=== PATIENT | female | born 1975 | race Caucasian/White ===

== ENCOUNTER → 2023-07-17 06:25 | Day surgery (SDC) | payer OTHER, SELFPAY | LOC: GI 06:25 | PROVIDERS: ATTENDING PHYSICIAN Internal Medicine Gastroenterology | DX: Z12.11 Encounter for screening for malignant neoplasm of colon (principal); K63.5 Polyp of colon; K57.30 Diverticulosis of large intestine without perforation or abscess without bleeding; D12.8 Benign neoplasm of rectum; K64.0 First degree hemorrhoids; Z86.010 Personal history of colon polyps; Z98.890 Other specified postprocedural states | CPT/HCPCS: 45380; 88305 ==

== ENCOUNTER → 2023-07-20 13:26 | Outpatient (REF) | payer OTHER, SELFPAY | LOC: HWWDC 13:26 | PROVIDERS: ATTENDING PHYSICIAN Nurse Practitioner Family | DX: Z12.31 Encounter for screening mammogram for malignant neoplasm of breast (principal) | CPT/HCPCS: 77063; 77067 ==

== ENCOUNTER → 2024-08-10 08:42 | Outpatient (REF) | payer OTHER, SELFPAY | LOC: HWWDC 08:42 | PROVIDERS: ATTENDING PHYSICIAN Nurse Practitioner Family | DX: Z12.31 Encounter for screening mammogram for malignant neoplasm of breast (principal) | CPT/HCPCS: 77063; 77067 ==

== ENCOUNTER → 2024-11-04 11:13 | Outpatient (REF) | payer OTHER, SELFPAY | LOC: HWRAD 11:13 | PROVIDERS: ATTENDING PHYSICIAN Nurse Practitioner Family | DX: M25.571 Pain in right ankle and joints of right foot (principal) | CPT/HCPCS: 73610 ==

== ENCOUNTER 2025-02-08 09:49 | Emergency (ER) | payer OTHER, SELFPAY ==
[2025-02-08 10:07] VITALS: BP 119/81
[2025-02-08 11:46] LABS: Hematocrit 41.8 % (37.0-47.0); Hemoglobin 14.0 g/dL (12.0-16.0); Mean Corp Hgb Conc. 33.5 g/dL (33.0-37.0); Mean Corpuscular Volume 88.7 fL (81.0-99.0); Nucleated Red Blood Cells % 0 %; Platelet Count 269 10^3/uL (130-400); Red Cell Dist. Width 13.6 % (11.5-14.5)
--- NOTE | 2025-02-08 11:50 | ED.GENMED ---
History of Present Illness
General
Chief Complaint: Abdominal Pain
Time Seen by Provider: 02/08/25 11:31
History of Present Illness
History of Present Illness:
49-year-old female presents for evaluation of crampy lower abdominal pain beginning overnight. She would have the urge to have a bowel movement and passed a small amount of mucousy stool then pain would improve. Pain is minimal at this time. No
fevers, chills, sweats, nausea, vomiting, or lower urinary tract voiding symptoms. Prior abdominal surgery includes hysterectomy and laparoscopic surgery for endometriosis. Has had prior colonoscopies that showed diverticulosis
Past History
Past History
ED Past Medical History: None; Negative Asthma, HTN, Hypercholesterolemia or NIDDM
ED Past Surgical History: None
Social History
Tobacco: Smoker
Alcohol: None
Personal:
Living: with family
Review of Systems
Review of Systems
Allergies reviewed?: Yes
All Other Systems: ROS reviewed and negative except as documented in HPI and ROS
Phy Exam
Physical Exam
Physical Exam:
GEN: Well appearing, NAD, WDWN
HEENT: Oral mucosa moist, no scleral icterus
Cardiac: Regular rate
Lung: No respiratory distress, no tachypnea
Abdomen: Soft, mildly tender in the suprapubic and left lower quadrant, no rigidity or peritoneal signs
MSK: No gross deformity or injuries
Skin: Good color, no pallor or jaundice, no rashes
Neuro: AO x3, moves all extremities freely
Psych: Calm, cooperative
Course
Orders/Labs/Results
Orders:
Orders
02/08/25 11:36
Complete Blood Count/With Diff Urgent
02/08/25 11:50
CT Abd/Pel (IV only)-DH only Urgent
Comment:
Reason For Exam: LLQ pain
02/08/25 12:02
Comprehensive Metabolic Panel Urgent
HCG, Serum Qualitative Screen Urgent
Comment: ADD ON
Lipase Urgent
Abnormal Lab Results
02/08/25
12:02
Glucose 102 H mg/dl
(70-99)
02/08/25 11:36
02/08/25 12:02
Vital Signs
Initial and Last Documented VS:
Initial Vital Signs
Temp Pulse Resp BP Pulse Ox
98.1 F 73 16 119/81 97
02/08/25 10:07 02/08/25 10:07 02/08/25 10:07 02/08/25 10:07 02/08/25 10:07
Last Documented Vital Signs
Temp Pulse Resp BP Pulse Ox
98.1 F 75 18 131/72 98
02/08/25 10:07 02/08/25 14:13 02/08/25 14:13 02/08/25 14:13 02/08/25 14:13
MDM/Problems Addressed
MDM/Problems Addressed:
Imaging is grossly unremarkable for acute pathology. May be self-limited viral syndrome. I have prescribed the patient dicyclomine for supportive relief and recommend outpatient primary care follow-up if symptoms persist
*Pulse Oximetry
SaO2: 97
Oxygen Mode of Delivery: Room air
Patient hypoxic: no
*Critical Care Note
Total Time (30-74mins, 75-104mins- exclusive of procedures): Not Applicable
ED Attending Note
-
Portions of this chart may have been created with voice recognition software.� Occasional wrong word or��sound alike� substitutions may have occurred due to the inherent limitations of voice recognition software.
Discharge Plan
Departure
Patient Disposition: Home (Routine Discharge)
Date of Disposition: 02/08/25
Time of Disposition: 14:53
Patient with high blood pressure during this ER visit?: No
Discharge Problem:
Abdominal pain
Instructions: Abdominal Pain
Prescriptions:
New
dicyclomine 20 mg tablet
20 mg PO TID PRN (Reason: abdominal pain) Qty: 20 0RF
No Action
levofloxacin 250 MG tablet
500 mg PO DAILY Qty: 5 0RF
Referrals:
Aba Quintero CRNP [Family Provider, Family Practice]
Interventions
Interventions:
*Risk Screen - Suicide Last Done: 02/08/25 10:07
*General Assessment Last Done: 02/08/25 10:07
*Nursing Disposition Last Done: 02/08/25 15:17
[facility] Assessment Last Done: 02/08/25 12:24
Discharge Date and Time
Discharge Date/Time: 02/08/25 15:17
Print Language: TAJIK
[2025-02-08 12:36] LABS: HCG, Serum Qualitative Screen Negative
[2025-02-08 12:42] LABS: ALT (SGPT) 17 U/L (0-35); AST (SGOT) 19 U/L (14-36); Albumin 4.3 g/dl (3.5-5.0); Alkaline Phosphatase 80 U/L (38-126); Blood Urea Nitrogen 17 mg/dl (7-17); Calcium 9.7 mg/dl (8.4-10.2); Carbon Dioxide 28 mmol/L (22-30); Chloride 106 mmol/L (98-107); Glucose 102 mg/dl (70-99); Lipase 47 U/L (23-300); Potassium 4.1 mmol/L (3.5-5.1); Sodium 138 mmol/L (135-145); Total Protein 7.3 g/dl (6.3-8.2); eGFR > 60.00
[2025-02-08 14:13] VITALS: BP 131/72
== END 2025-02-08 15:17 | disposition home or self-care (01) ==
LOC: EMR 09:49
PROVIDERS: Emergency Medicine; EMERGENCY PHYSICIAN Emergency Medicine; FAMILY PHYSICIAN Nurse Practitioner Family
DX: R10.30 Lower abdominal pain, unspecified (principal); F17.200 Nicotine dependence, unspecified, uncomplicated; Z90.710 Acquired absence of both cervix and uterus
CPT/HCPCS: 99284; 74177; 80053; 83690; 84703; 85025; Q9967

== ENCOUNTER 2025-05-11 18:43 | Emergency (ER) | payer OTHER, SELFPAY ==
[2025-05-11 18:46] VITALS: BP 147/78
[2025-05-11 19:14] LABS: Hematocrit 39.3 % (37.0-47.0); Hemoglobin 13.1 g/dL (12.0-16.0); Mean Corp Hgb Conc. 33.3 g/dL (33.0-37.0); Mean Corpuscular Volume 88.5 fL (81.0-99.0); Nucleated Red Blood Cells % 0 %; Platelet Count 254 10^3/uL (130-400); Red Cell Dist. Width 13.8 % (11.5-14.5)
[2025-05-11 19:19] VITALS: BP 124/67
[2025-05-11 19:35] LABS: ALT (SGPT) 23 U/L (0-35); AST (SGOT) 31 U/L (14-36); Albumin 4.2 g/dl (3.5-5.0); Alkaline Phosphatase 102 U/L (38-126); Blood Urea Nitrogen 18 mg/dl (7-17); Calcium 9.4 mg/dl (8.4-10.2); Carbon Dioxide 29 mmol/L (22-30); Chloride 105 mmol/L (98-107); Glucose 123 mg/dl (70-99); Lipase 72 U/L (23-300); Potassium 4.0 mmol/L (3.5-5.1); Sodium 139 mmol/L (135-145); Total Protein 7.2 g/dl (6.3-8.2); eGFR > 60.00
[2025-05-11 19:41] LABS: INR 0.96; PT 12.6 Sec (11.4-14.6)
[2025-05-11 19:47] LABS: Troponin I < 0.012 ng/ml
[2025-05-11 20:00] VITALS: BP 124/75
--- NOTE | 2025-05-11 20:14 | ED.GENMED ---
History of Present Illness
General
Chief Complaint: Chest Pain
Time Seen by Provider: 05/11/25 20:13
Nursing documentation reviewed up to this point in time: agreed with
History of Present Illness
History of Present Illness:
50-year-old female presents to the ER for evaluation of upper abdominal discomfort which started abruptly after eating. Patient was celebrating a holiday with her family and had steak for dinner followed by cheese cake for dessert. Patient
describes it as a sharp pain in her mid upper abdomen with feeling of radiation to her shoulder. She states it was very intense making her feel nauseated and diaphoretic. No prior history of similar discomforts. No prior history of abdominal
surgery. Patient tried taking Tums without any improvement. She also has no prior personal history of ACS. Patient states that the pain has improved significantly while awaiting test results. She denies vomiting or change in bowel habits. She
has no significant prior medical history
Past History
Past History
ED Past Medical History: None; Negative Asthma, HTN, Hypercholesterolemia or NIDDM
ED Past Surgical History: None
Social History
Tobacco: Smoker
Alcohol: None
Personal:
Living: with family
Review of Systems
Review of Systems
Allergies reviewed?: Yes
Phy Exam
Physical Exam
Physical Exam:
Patient is awake, alert, appears in no acute distress, overweight, head is NCAT, PERRL, EOMI mucous membranes moist, conjunctiva pink, sclera anicteric, heart regular rate and rhythm without murmurs or ectopy, lungs are clear to auscultation without
wheezes rales or rhonchi, no JVD, abdomen is soft, obese, mild pain on palpation in epigastrium, negative Nieto's, extremities without edema, GCS is 15
Scores
Heart Score for Chest Pain Patients
STEMI patient?: Not applicable
History: Slightly or Non-Suspicious
ECG: Normal
Age: >45 - <65 years
Risk Factors: No Risk Factors
Troponin: </= Normal Limit
Heart Score for Chest Pain Patients: 1
Heart Score Risk: 2.5% MACE over next 6 weeks
Course
Orders/Labs/Results
Orders:
Orders
05/11/25 18:44
Electrocardiogram (*1) Urgent
Reason for Study: Chest Pain
EKG- Treatment ONCE
05/11/25 19:03
Complete Blood Count/With Diff Urgent
Comprehensive Metabolic Panel Urgent
Lipase Urgent
Prothrombin Time Urgent
Troponin I Urgent
05/11/25 20:19
US Abdomen Complete/Upper Urgent
Comment:
Reason For Exam: pain
05/11/25 20:20
Famotidine [Pepcid] 20 mg IV NOW STA
Ketorolac [Toradol] 15 mg IV NOW STA
Abnormal Lab Results
05/11/25
19:03
Abs Immat Gran (auto) 0.1 H 10^3/uL
(0-0.05)
Absolute Neuts (auto) 7.8 H 10^3/uL
(1.4-6.5)
Absolute Monos (auto) 0.7 H 10^3/uL
(0.1-0.6)
Immature Gran % 0.6 H %
(0-0.5)
Lymphocytes % 18.8 L %
(20.5-51.1)
BUN 18 H mg/dl
(7-17)
Glucose 123 H mg/dl
(70-99)
05/11/25 19:03
05/11/25 19:03
CBC within normal limits. Electrolytes and liver function studies are also within normal limits.
Vital Signs
Initial and Last Documented VS:
Initial Vital Signs
Temp Pulse Resp BP Pulse Ox
97.7 F 93 18 147/78 98
05/11/25 18:46 05/11/25 18:46 05/11/25 18:46 05/11/25 18:46 05/11/25 18:46
Last Documented Vital Signs
Temp Pulse Resp BP Pulse Ox
97.7 F 75 20 139/82 98
05/11/25 18:46 05/11/25 21:15 05/11/25 21:15 05/11/25 21:00 05/11/25 21:15
MDM/Problems Addressed
Differential Diagnosis Includes:
Differential diagnosis to consider but not limited to esophageal spasm, GERD, gastritis, biliary colic, choledocholithiasis along with other etiologies considered
Chronic conditions affecting care:
Endometriosis
*Radiology
Radiology exam reviewed: radiology read reviewed (I reviewed ultrasound results showing polyp in the gallbladder neck, no gallstones)
*Pulse Oximetry
SaO2: 98
Oxygen Mode of Delivery: Room air
Patient hypoxic: no
*EKG
Interpreted by ED Provider?: Yes (I independently viewed and interpreted twelve-lead EKG showing sinus rhythm with sinus arrhythmia, rate 74, normal axis, no ST elevation, this is a normal variant without evidence for acute ischemia, no prior for
comparison)
*Cargo Bracer Interpretation
Rate: normal (I independently viewed and interpreted rhythm strip showing normal sinus rhythm, no ectopy)
*Critical Care Note
Total Time (30-74mins, 75-104mins- exclusive of procedures): Not Applicable
Update Note
Update Note:
Will give Toradol and Pepcid and obtain ultrasound to assess for biliary colic. Patient agrees with plan at current. I discussed with her all test results with her, very reassuring labs, no evidence for ACS. EKG is also nonischemic. She has no
questions at the current time.
0799: Once ultrasound result available, I reevaluated the patient. She reports only minimal discomfort at the current time. I discussed with her presence of suspected polyp in the gallbladder neck. I discussed with her no indication for emergent
cholecystectomy tonight, however she will need to follow-up with surgery for definitive care. We discussed strict return precautions. She feels comfortable with plan for discharge. She is provided with surgery referral information and expressed
understanding of need to follow a strict low-fat diet until seen in follow-up. She has no additional questions at the current time.
ED Attending Note
-
Portions of this chart may have been created with voice recognition software.� Occasional wrong word or��sound alike� substitutions may have occurred due to the inherent limitations of voice recognition software.
Discharge Plan
Departure
Patient Disposition: Home (Routine Discharge)
Date of Disposition: 05/11/25
Time of Disposition: 22:59
Patient with high blood pressure during this ER visit?: No
Discharge Problem:
Biliary colic
Instructions: Abdominal pain in adults - ED (DC)
Prescriptions:
No Action
levofloxacin 250 MG tablet
500 mg PO DAILY Qty: 5 0RF
dicyclomine 20 mg tablet
20 mg PO TID PRN (Reason: abdominal pain) Qty: 20 0RF
Referrals:
Aba Quintero CRNP [Family Provider, Family Practice]
Bishnu Beltran MD [Active, Surgical] - Next open appointment
Discharge Problem: Biliary colic
Activity Restrictions/Additional Instructions:
Follow a low-fat diet until you are seen in follow-up by surgery. Please contact surgery office in the morning to schedule appointment for reevaluation and further care. Return to the ER for any concerns including but not limited to worsening
pain, fever, inability to eat or drink
Interventions
Interventions:
*General Assessment Last Done: 05/11/25 18:46
*Neglect/Abuse Screening Last Done: 05/11/25 18:46
*ED COVID-19 Vaccine History Last Done: 05/11/25 20:57
*ED Influenza Vaccine History Last Done: 05/11/25 20:57
[facility] Risk Assessment Tool Last Done: 05/11/25 21:29
*Risk Screen - Suicide (C-SSRS) Last Done: 05/11/25 20:57
ED- Cardiac Assessment Last Done: 05/11/25 21:27
Discharge Date and Time
Print Language: NAURUAN
[2025-05-11] MEDS: TORADOL 15 MG IV (20:54)
[2025-05-11] MEDS: PEPCID 20 MG IV (20:54)
[2025-05-11 21:00] VITALS: BP 139/82
[2025-05-11 23:20] VITALS: BP 117/77
== END 2025-05-11 23:34 | disposition home or self-care (01) ==
LOC: EMR 18:43
PROVIDERS: Emergency Medicine; EMERGENCY PHYSICIAN Emergency Medicine; FAMILY PHYSICIAN Nurse Practitioner Family
DX: K80.50 Calculus of bile duct without cholangitis or cholecystitis without obstruction (principal); I49.8 Other specified cardiac arrhythmias; N80.9 Endometriosis, unspecified; F17.200 Nicotine dependence, unspecified, uncomplicated
CPT/HCPCS: 99284; 96374; 96375; 76700; 80053; 83690; 84484; 85025; 85610; 93005